=== PATIENT | male | born 1995 | race Caucasian/White ===

== ENCOUNTER → 2019-07-21 | Outpatient (CLI) | payer BC ==
[2019-07-24 12:34] LABS: ANGIOTENSIN CONVERTING ENZYME 47 U/L (16 - 85)
[2019-07-24 13:31] LABS: LYME DISEASE EIA Negative (Negative)
== END ==
LOC: LAB 10:03
DX: D86.9 Sarcoidosis, unspecified (principal); R00.1 Bradycardia, unspecified